=== PATIENT | male | born 1950 | race Caucasian/White ===

== ENCOUNTER 2022-04-13 17:19 | Inpatient (IN) | payer MEDICARE ==
[~2022-04-13] VITALS: Ht 173 cm; Wt 92.6 kg
[~2022-04-13 17:19] MED LIST: AZITHROMYCIN250 MG PO; BREO ELLIPTA 11 EACH INH; CEFTIN250 MG PO; INCRUSE ELLI62.5 MCG INH; IPRATROPIU0.2 MG/1 M INH; NEURONTIN300 MG PO; OXYCODON-ACETA1 EAC1 PO; PREDNISONE 10MG10 MG PO; ROBAXIN750 MG PO; SINGULAIR10 MG PO; VENTOLIN (2.5 MG/3 M INH
[2022-04-13 17:57] LABS: BASOPHIL 0.2 % (0-2); EOSINOPHIL 0 % (0-7); HCT 45.6 % (42.0-52.0); HGB 14.9 g/dl (13.2-18.0); LYMPHOCYTE 7.5 % (15-48); MCHC 32.7 g/dL (32.0-36.0); MCV 98.1 fL (78.0-100.0); MONOCYTE 6.3 % (0-12); MPV 11.2 fL (6.0-9.5); NEUTROPHIL 85.5 % (41-80); NRBC 0; PLT 268 K/uL (150-400); RBC 4.65 M/uL (4.70-6.00); RDW 14.2 % (11.5-14.0); WBC 19.1 K/uL (4.0-10.5)
[2022-04-13 18:15] LABS: ALBUMIN 3.5 g/dL (3.4-5.0); BILIRUBIN - TOTAL 1.1 mg/dL (0.2-1.0); BUN/CREAT RATIO (CALC) 45.1 RATIO; CREATININE 0.71 mg/dL (0.67-1.17); GLOBULIN (CALCULATION) 4.9 g/dL; TOTAL PROTEIN 8.4 g/dL (6.4-8.2)
[2022-04-13 18:16] LABS: LACTIC ACID 3.4 mmol/L (0.4-1.9)
[2022-04-13 19:08] LABS: CORONAVIRUS 2019 SARS-COV-2 NEGATIVE (NEGATIVE); INFLUENZA A NAA NEGATIVE (NEGATIVE)
[2022-04-13 22:28] LABS: BILIRUBIN 1+ mg/dL (NEGATIVE); BLOOD NEGATIVE Ery/uL (NEGATIVE); CLARITY CLEAR (CLEAR); COLOR YELLOW (YELLOW); GLUCOSE (U) NORMAL (NORMAL); LEUKOCYTES NEGATIVE Leu/uL (NEGATIVE); NITRITE NEGATIVE (NEGATIVE); PROTEIN NEGATIVE (NEGATIVE); SPECIFIC GRAVITY 1.025 (1.001-1.030); UROBILINOGEN 0.2 mg/dL (0.2-1.0)
[2022-04-13 22:31] LABS: ECSTASY (MDMA) NEGATIVE (NEGATIVE); MARIJUANA (THC) NEGATIVE (NEGATIVE)
[2022-04-13 22:32] LABS: AMPHETAMINES NEGATIVE (NEGATIVE); BARBITURATES NEGATIVE (NEGATIVE); METHADONE NEGATIVE (NEGATIVE); OPIATES NEGATIVE (NEGATIVE); OXYCODONE NEGATIVE (NEGATIVE)
[2022-04-14] MEDS ORDERED: PERCOCET 10-321 EACH PO (08:45)
[2022-04-14] MEDS ORDERED: GABAPENTIN800 MG PO (08:46)
[2022-04-14] MEDS ORDERED: ROBAXIN750 MG PO (08:46)
[2022-04-14] MEDS ORDERED: DUONEB 2.5-0.5M1 AMP INH (08:51)
[2022-04-14] MEDS ORDERED: NYSTATIN SUSP1 ML/ML SSP (08:52)
[2022-04-14] MEDS ORDERED: SINGULAIR10 MG PO (08:53)
[2022-04-14] MEDS ORDERED: VIBRAMYCIN100 MG PO (08:53)
[2022-04-14] MEDS ORDERED: PREDNISONE5 MG PO (08:54)
[2022-04-15 06:03] LABS: BASOPHIL 0.1 % (0-2); EOSINOPHIL 0 % (0-7); HCT 38.6 % (42.0-52.0); LYMPHOCYTE 2.6 % (15-48); MCH 31.4 pg (25.0-31.0); MCHC 31.1 g/dL (32.0-36.0); MONOCYTE 3.4 % (0-12); MPV 11.3 fL (6.0-9.5); NEUTROPHIL 93.1 % (41-80); NRBC 0; PLT 183 K/uL (150-400); RBC 3.82 M/uL (4.70-6.00); RDW 14.2 % (11.5-14.0); WBC 17.8 K/uL (4.0-10.5)
[2022-04-15 06:32] LABS: BUN/CREAT RATIO (CALC) 41.8 RATIO; CREATININE 0.67 mg/dL (0.67-1.17); MAGNESIUM 2.8 mg/dL (1.8-2.4); POTASSIUM 4.8 mmol/L (3.5-5.1)
[2022-04-16 06:25] LABS: BASOPHIL 0 % (0-2); EOSINOPHIL 0 % (0-7); HCT 36.5 % (42.0-52.0); HGB 11.3 g/dl (13.2-18.0); LYMPHOCYTE 5.8 % (15-48); MCH 31.2 pg (25.0-31.0); MCV 100.8 fL (78.0-100.0); MONOCYTE 4.9 % (0-12); MPV 11.4 fL (6.0-9.5); NEUTROPHIL 88.7 % (41-80); NRBC 0; PLT 169 K/uL (150-400); RBC 3.62 M/uL (4.70-6.00); RDW 13.9 % (11.5-14.0)
[2022-04-16 06:42] LABS: IRON % SATURATION 32.6 %SAT (20-50)
[2022-04-16 06:47] LABS: BUN/CREAT RATIO (CALC) 44.1 RATIO; CREATININE 0.68 mg/dL (0.67-1.17); POTASSIUM 4.2 mmol/L (3.5-5.1); VANCOMYCIN, TROUGH 1.4 ug/mL (10-20)
[2022-04-16 08:06] LABS: INR 1.22 (0.9-1.2); PROTHROMBIN TIME 14.8 SECONDS (11.8-13.4)
--- NOTE | 2022-04-16 14:29 | NUR ---
1415 EXTUBATED BY ALECIA RT AND DR BURNS AT BEDSIDE, PLACED 4L NC, BP 134/65, HR 83, R20,SAT 93% FAMILY AT BEDSIDE PRECEDEX 0.5MCG 12.8ML/HR FENTANYL TURN OFF
[2022-04-17 07:22] LABS: BASOPHIL 0 % (0-2); EOSINOPHIL 0 % (0-7); HCT 37.9 % (42.0-52.0); HGB 12.2 g/dl (13.2-18.0); LYMPHOCYTE 14.1 % (15-48); MCH 31.8 pg (25.0-31.0); MCHC 32.2 g/dL (32.0-36.0); MCV 98.7 fL (78.0-100.0); MONOCYTE 12.1 % (0-12); MPV 11.6 fL (6.0-9.5); NEUTROPHIL 73.3 % (41-80); NRBC 0; PLT 173 K/uL (150-400); RBC 3.84 M/uL (4.70-6.00); RDW 13.8 % (11.5-14.0); WBC 7.6 K/uL (4.0-10.5)
[2022-04-17 07:48] LABS: ALBUMIN 2.7 g/dL (3.4-5.0); BILIRUBIN - TOTAL 0.5 mg/dL (0.2-1.0); BUN/CREAT RATIO (CALC) 51.4 RATIO; CREATININE 0.7 mg/dL (0.67-1.17); GLOBULIN (CALCULATION) 3.9 g/dL; POTASSIUM 3.9 mmol/L (3.5-5.1); TOTAL PROTEIN 6.6 g/dL (6.4-8.2)
[2022-04-18 06:20] LABS: BASOPHIL 0.1 % (0-2); EOSINOPHIL 0 % (0-7); HCT 37.1 % (42.0-52.0); HGB 12.1 g/dl (13.2-18.0); LYMPHOCYTE 13.2 % (15-48); MCH 31.8 pg (25.0-31.0); MCHC 32.6 g/dL (32.0-36.0); MCV 97.4 fL (78.0-100.0); MONOCYTE 9.1 % (0-12); MPV 11.2 fL (6.0-9.5); NEUTROPHIL 77.2 % (41-80); NRBC 0; PLT 165 K/uL (150-400); RBC 3.81 M/uL (4.70-6.00); RDW 13.4 % (11.5-14.0); WBC 9.4 K/uL (4.0-10.5)
[2022-04-18 06:39] LABS: ALBUMIN 2.6 g/dL (3.4-5.0); BILIRUBIN - TOTAL 0.7 mg/dL (0.2-1.0); BUN/CREAT RATIO (CALC) 41.1 RATIO; CREATININE 0.56 mg/dL (0.67-1.17); GLOBULIN (CALCULATION) 3.6 g/dL; POTASSIUM 3.6 mmol/L (3.5-5.1); TOTAL PROTEIN 6.2 g/dL (6.4-8.2)
[2022-04-19 03:22] LABS: BASOPHIL 0.2 % (0-2); EOSINOPHIL 0 % (0-7); HCT 39.7 % (42.0-52.0); HGB 13.1 g/dl (13.2-18.0); LYMPHOCYTE 8.7 % (15-48); MCH 31.9 pg (25.0-31.0); MCV 96.6 fL (78.0-100.0); MONOCYTE 6.7 % (0-12); MPV 11.4 fL (6.0-9.5); NEUTROPHIL 83.9 % (41-80); NRBC 0; PLT 164 K/uL (150-400); RBC 4.11 M/uL (4.70-6.00); RDW 13.5 % (11.5-14.0); WBC 15.1 K/uL (4.0-10.5)
[2022-04-19 03:46] LABS: ALBUMIN 2.6 g/dL (3.4-5.0); BILIRUBIN - DIRECT 0.3 mg/dL (0.00-0.20); BUN/CREAT RATIO (CALC) 33.3 RATIO; CREATININE 0.51 mg/dL (0.67-1.17); GLOBULIN (CALCULATION) 4.1 g/dL; POTASSIUM 3.9 mmol/L (3.5-5.1); TOTAL PROTEIN 6.7 g/dL (6.4-8.2)
[2022-04-20 03:21] LABS: BASOPHIL 0.2 % (0-2); EOSINOPHIL 0 % (0-7); HCT 42.5 % (42.0-52.0); LYMPHOCYTE 6.5 % (15-48); MCH 31.7 pg (25.0-31.0); MCHC 32.9 g/dL (32.0-36.0); MCV 96.2 fL (78.0-100.0); MONOCYTE 7.6 % (0-12); MPV 11.6 fL (6.0-9.5); NRBC 0; PLT 184 K/uL (150-400); RBC 4.42 M/uL (4.70-6.00); RDW 13.5 % (11.5-14.0); WBC 19.9 K/uL (4.0-10.5)
[2022-04-20 04:13] LABS: ALBUMIN 2.6 g/dL (3.4-5.0); BILIRUBIN - DIRECT 0.4 mg/dL (0.00-0.20); BUN/CREAT RATIO (CALC) 40.7 RATIO; CREATININE 0.54 mg/dL (0.67-1.17); GLOBULIN (CALCULATION) 4.3 g/dL; POTASSIUM 4.1 mmol/L (3.5-5.1); TOTAL PROTEIN 6.9 g/dL (6.4-8.2)
[2022-04-20 10:09] LABS: BILIRUBIN 1+ mg/dL (NEGATIVE); BLOOD TRACE-INTACT Ery/uL (NEGATIVE); CLARITY CLEAR (CLEAR); COLOR YELLOW (YELLOW); GLUCOSE (U) NORMAL (NORMAL); LEUKOCYTES NEGATIVE Leu/uL (NEGATIVE); NITRITE NEGATIVE (NEGATIVE); PROTEIN NEGATIVE (NEGATIVE); SPECIFIC GRAVITY 1.025 (1.001-1.030)
[2022-04-20 10:18] LABS: URINARY RBC RARE
[2022-04-20 10:19] LABS: SQUAMOUS EPITHELIAL CELLS RARE
[2022-04-20 11:08] LABS: LACTIC ACID 0.7 mmol/L (0.4-1.9)
[2022-04-20 18:02] LABS: CREATININE 0.5 mg/dL (0.67-1.17); MAGNESIUM 2.3 mg/dL (1.8-2.4); POTASSIUM 4.3 mmol/L (3.5-5.1)
--- NOTE | 2022-04-20 18:05 | NUR ---
PATIENT WITH HEART RATE IN THE 180S-200S. CARDIZEM PUSH GIVEN AT 1720 WITH DRIP STARTED AT 10 MG\HOUR AT SAME TIME. UNABLE TO SCAN CARDIZEM DRIP, ORDER VERIFIED BY ANGELICA DE OLIVEIRA.
[2022-04-21 06:02] LABS: BASOPHIL 0.2 % (0-2); EOSINOPHIL 0 % (0-7); HGB 13.5 g/dl (13.2-18.0); LYMPHOCYTE 6.6 % (15-48); MCH 31.1 pg (25.0-31.0); MCHC 31.4 g/dL (32.0-36.0); MCV 99.1 fL (78.0-100.0); MONOCYTE 8.7 % (0-12); NEUTROPHIL 83.8 % (41-80); NRBC 0; PLT 189 K/uL (150-400); RBC 4.34 M/uL (4.70-6.00); RDW 13.5 % (11.5-14.0); WBC 19.9 K/uL (4.0-10.5)
[2022-04-21 06:16] LABS: INR 1.3 (0.9-1.2); PROTHROMBIN TIME 15.5 SECONDS (11.8-13.4)
[2022-04-21 06:17] LABS: ALBUMIN 2.4 g/dL (3.4-5.0); ALKALINE PHOSHATASE 78 U/L (46-116); ALT 49 U/L (16-63); AST 33 U/L (15-37); BUN 22 mg/dL (7-18); BUN/CREAT RATIO (CALC) 40.7 RATIO; C-REACTIVE PROTEIN >18.00 mg/dL (<=0.90); CHLORIDE 104 mmol/L (98-107); CO2 (BICARBONATE) 36 mmol/L (21-32); CREATININE 0.54 mg/dL (0.67-1.17); GLOBULIN (CALCULATION) 4.2 g/dL; GLUCOSE 125 mg/dL (74-106); POTASSIUM 3.9 mmol/L (3.5-5.1); TOTAL PROTEIN 6.6 g/dL (6.4-8.2)
--- NOTE | 2022-04-21 20:42 | NUR ---
1200 TOOK PT IN THE BED TO CT SCAN, CT WITH CONTRAST OF CHEST AND ABD/PELVIS ARUNA ASSISTED ME
== END 2022-04-21 22:43 | disposition expired | DRG 871 ==
LOC: FER 17:19 → FICU 04-14 03:40
PROVIDERS: Emergency Medicine; Family Medicine; Hospitalist; ADMIT Internal Medicine
PROC: 3E03329 Introduction of Other Anti-infective into Peripheral Vein, Percutaneous Approach (ICD-10-PCS; 2022-04-13)
PROC: 5A1945Z Respiratory Ventilation, 24-96 Consecutive Hours (ICD-10-PCS; 2022-04-14)
PROC: 0BH17EZ Insertion of Endotracheal Airway into Trachea, Via Natural or Artificial Opening (ICD-10-PCS; 2022-04-14)
PROC: B24BZZZ Ultrasonography of Heart with Aorta (ICD-10-PCS; 2022-04-17)
PROC: 0J9Q0ZZ Drainage of Right Foot Subcutaneous Tissue and Fascia, Open Approach (ICD-10-PCS; principal; 2022-04-21)
DX: A41.52 Sepsis due to Pseudomonas (principal); J69.0 Pneumonitis due to inhalation of food and vomit; G93.41 Metabolic encephalopathy; J96.21 Acute and chronic respiratory failure with hypoxia; J15.1 Pneumonia due to Pseudomonas; J96.02 Acute respiratory failure with hypercapnia; I50.33 Acute on chronic diastolic (congestive) heart failure; L03.116 Cellulitis of left lower limb; L03.115 Cellulitis of right lower limb; J44.0 Chronic obstructive pulmonary disease with (acute) lower respiratory infection; K92.2 Gastrointestinal hemorrhage, unspecified; D62 Acute posthemorrhagic anemia; J44.1 Chronic obstructive pulmonary disease with (acute) exacerbation; F10.131 Alcohol abuse with withdrawal delirium; Z51.5 Encounter for palliative care; Z66 Do not resuscitate; R65.20 Severe sepsis without septic shock; Z20.822 Contact with and (suspected) exposure to COVID-19; G89.4 Chronic pain syndrome; J20.9 Acute bronchitis, unspecified; S90.821A Blister (nonthermal), right foot, initial encounter; X58.XXXA Exposure to other specified factors, initial encounter; D53.9 Nutritional anemia, unspecified; I11.0 Hypertensive heart disease with heart failure; I48.0 Paroxysmal atrial fibrillation; G62.9 Polyneuropathy, unspecified; F17.210 Nicotine dependence, cigarettes, uncomplicated; K74.60 Unspecified cirrhosis of liver; R91.1 Solitary pulmonary nodule; E66.9 Obesity, unspecified; R47.1 Dysarthria and anarthria; Z79.899 Other long term (current) drug therapy; Z98.890 Other specified postprocedural states; Z68.33 Body mass index [BMI] 33.0-33.9, adult; Z99.81 Dependence on supplemental oxygen
CPT/HCPCS: 36415; 36600; 70450; 70551; 71045; 71275; 73620; 76705; 80048; 80053; 80076; 80202; 80305; 81001; 81003; 82607; 82803; 83036; 83540; 83550; 83605; 83735; 83880; 84145; 84484; 85025; 85610; 86140; 87040; 87070; 87075; 87077; 87088; 87186; 87205; 87449; 93005; 94002; 94010; 94640; 96365; 96366; 96375; 96376; C9113; G0480; J0360; J0692; J1630; J1650; J1940; J2060; J2250; J2405; J2543; J2704; J2930; J3010; J3411; J3475; J3480; J3490; J7030; J7050; J7120; Q9967; U0002